=== PATIENT | female | born 1940 | race Caucasian/White ===

== ENCOUNTER 2019-04-22 15:16 | Observation (INO) | payer OTHER ==
[~2019-04-22] VITALS: Ht 157.5 cm; Wt 56.2 kg
[~2019-04-22 15:16] MED LIST: CELEBREX; DEXILANT60 MG PO; HYDROCODONE; K DUR10 MEQ PO; LEVAQUIN750 MG PO; MECLIZINE HCL25 M1 PO; MUCINEX DM ER1 EACH PO; NORCO 10-325 T1 EACH PO; NORVASC PO; NORVASC5 MG PO; PROAIR HFA INH8.5 GM; SIMVASTATIN PO; SIMVASTATIN20 MG PO; SYNTHROID25 MCG PO; TRAZODONE HCL300 MG PO; Z.0.LEVOTHYROXINE75 PO; Z.0.TRAZODONE HCL100 PO; Z.0.VICODIN HP TAB1 PO; Z.1.DIOVAN HCT 1601 PO
--- OUTSIDE RECORDS SUMMARY | 2019-04-22 15:20 | XMS REPORT ---
Author Author [facility] Address Unknown Phone Unavailable Care Team Providers Care Supervisor Fertilizer Name Role Phone Unavailable Unavailable Payers Payer Name Policy Type Policy Number Effective Date Expiration Date Problems This patient has no known problems. Allergies, Adverse Reactions, Alerts Allergy Name Allergy Type Status Severity Reaction(s) Onset Date Inactive Date Treating Clinician Comments Sulfa (Sulfonamide Antibiotics) DA Active SV 2017-10-27 00:00:00 ceftriaxone DA Active SV 2017-10-27 00:00:00 Medications This patient has no known medications.
[2019-04-22 16:43] LABS: BASOPHILS % 0.1 % (0.0-1.0); EOSINOPHILS % 0.1 % (0.0-6.0); HEMATOCRIT 37.8 % (34.2-44.1); HEMOGLOBIN 13.4 g/dL (12.0-16.0); LYMPHOCYTES # (AUTO) 2.7 (1.0-3.2); LYMPHOCYTES % 27.3 % (18.0-39.1); MEAN CORPUSCULAR HEMOGLOBIN 33.8 pg (28-32); MEAN CORPUSCULAR HGB CONC 35.4 g/dL (31-35); MEAN CORPUSCULAR VOLUME 95.2 fL (81-99); MONOCYTES # (AUTO) 0.9 (0.2-0.8); MONOCYTES % 8.9 % (4.4-11.3); NEUTROPHILS # (AUTO) 6.2 (2.1-6.9); PLATELET COUNT 311 x10e3/uL (140-360); RED BLOOD COUNT 3.97 x10e6/uL (3.6-5.1); RED CELL DISTRIBUTION WIDTH 12.1 % (11.7-14.4)
[2019-04-22 16:43] LABS: BILIRUBIN,URINE NEGATIVE (NEGATIVE); CLARITY,URINE SL CLOUDY (CLEAR); COLOR,URINE YELLOW (YELLOW); KETONES,URINE NEGATIVE (NEGATIVE); LEUKOCYTE ESTERASE ,URINE NEGATIVE (NEGATIVE); NITRITE,URINE NEGATIVE (NEGATIVE); PROTEIN,URINE DIPSTICK NEGATIVE (NEGATIVE); URINE UROBILINOGEN 0.2 mg/dL (0.2 - 1)
[2019-04-22 16:53] LABS: INR 0.84
[2019-04-22 16:54] LABS: PARTIAL THROMBOPLASTIN TIME 32.6 seconds (23.8-35.5)
[2019-04-22 16:57] LABS: BACTERIA,URINE RARE /HPF; EPITHELIAL CELLS,URINE RARE /LPF; RBC,URINE 0-5 /HPF (0-5)
[2019-04-22 17:03] LABS: ALANINE AMINOTRANSFERASE 14 IU/L (0-55); ALBUMIN 3.4 g/dL (3.5-5.0); ALBUMIN/GLOBULIN RATIO 1.1 (0.8-2.0); ALKALINE PHOSPHATASE 54 IU/L (40-150); ANION GAP 16.3 mmol/L (8-16); BLOOD UREA NITROGEN 9 mg/dL (7-26); BUN/CREATININE RATIO 11 (6-25); CALCIUM 8.7 mg/dL (8.4-10.2); CARBON DIOXIDE 23 mmol/L (22-29); CHLORIDE 86 mmol/L (98-107); CREATINE KINASE 49 IU/L (29-168); CREATININE, SERUM 0.83 mg/dL (0.57-1.11); EST GLOMERULAR FILTRATION RATE > 60 ML/MIN (60-); GLUCOSE 111 mg/dL (74-118); MAGNESIUM 1.8 MG/DL (1.3-2.1); POTASSIUM 3.3 mmol/L (3.5-5.1); SODIUM 122 mmol/L (136-145)
[2019-04-22 18:30] LABS: BLOOD UREA NITROGEN 8 mg/dL (7-26); GLUCOSE 109 mg/dL (74-118); OSMOLALITY,SERUM 245 mOsm/kg (278-305); SODIUM 122 mmol/L (136-145)
[2019-04-22] MEDS ORDERED: SODIUM CHLORIDE FLUSH 10 ML SYR INJ PRN (18:45)
--- NOTE | 2019-04-22 18:54 | Diagnostic Imaging Report ---
EXAMINATION: Head CT HISTORY: Difficulty walking, UTI, imbalance. COMPARISON: Head CT report from 12/12/2012 TECHNIQUE: Multidetector axial images were obtained without contrast from the foramen magnum to the vertex . The images were reconstructed using brain and bone algorithms. Thin section brain images were reformatted into coronal and sagittal planes. Image quality: Motion/streaking artifact limits the evaluation of the skull base and posterior cranial fossa. Dose modulation, iterative reconstruction, and/or weight based adjustment of the mA/kV was utilized to reduce the radiation dose to as low as reasonably achievable. FINDINGS: Parenchyma: 1. Persistent mild white matter chronic microvascular ischemic changes. Tiny chronic lacunar infarct in the right striatocapsular region. 2. No mass or hemorrhage. No CT evidence of acute territorial vascular insult. Extra-axial spaces:No abnormal density. No extra-axial fluid collections Brain volume: Normal for age. Ventricles: No hydrocephalus or displacement. Arteries: No density suggestive of thrombus. Dural sinuses: No abnormal density. Extra-axial spaces: No abnormal density. Foramen magnum: No mass, Chiari malformation, or basilar invagination. Sella: No obvious mass. Paranasal/mastoid sinuses: Imaged portions unremarkable. Skull/Scalp: No lytic or blastic lesions. No fractures. IMPRESSION: 1. No acute intracranial hemorrhage or cortical infarcts. 2. Mild chronic microvascular ischemic changes. Signed by: Dr. Jagruti Mendez M.D. on 04/22/2019 6:51 PM
--- NOTE | 2019-04-22 20:10 | NUR ---
called to room. pt states that bp elevated and states i need to take my hydralazine." pt states that has medication in bag. pt instructed to not take medication until approved by doctor. nurse informed. back to room to recheck bp. pt states took her own pill despite being instructed to wait. nurse informed.
--- NOTE | 2019-04-22 20:12 | NUR ---
KATHERYN CROCKETT'Marc PER 'S ORDERS
[2019-04-22] MEDS ORDERED: PLAVIX75 MG PO (20:46)
[2019-04-22] MEDS ORDERED: HYDRALAZINE HCL25 MG PO (20:46)
--- NOTE | 2019-04-22 20:56 | NUR ---
informed dr valle in full of patient taking one hydralazine 50mg tab from home medications she brought with her. went over with dr valle all home medications and were reconciled. patient instructed that she is not to take home medications without telling medical staff. patient hostile with this nurse.
[2019-04-22] MEDS ORDERED: SIMVASTATIN 20 MG TAB PO SCH (21:00)
[2019-04-22] MEDS ORDERED: HYDRALAZINE HCL 25 MG TAB PO PRN (21:00)
--- NOTE | 2019-04-22 21:08 | NUR ---
PT ARRIVED ON THE FLOOR AT 2107. PT IS BEING DISRESPECTFUL TO NURSE SHANE. PT CALLED NURSE SHANE AN ASSHOLE AND STATED THAT SHE IS GOING TO GET HIM FIRED. RESPIRATION IS EVEN AND UNLABORED, NO DISTRESS NOTED. PT ORIENTED TO THE ROOM, BED IN THE LOWEST POSITION, LOCKED, BED ALARM ON, AND CALL LIGHT WITHIN REACH. WILL CONTINUE TO MONITOR.
[2019-04-22 21:30] VITALS: BP 168/68
[2019-04-22] MEDS: ONDANSETRON HCL INJ 2MG/ML 2ML 2 MG/ML VIAL IV PRN (21:51)
--- NOTE | 2019-04-22 22:02 | NUR ---
PER DR JOHNSON RENEW PT HOME MEDICATION. WILL CONTINUE TO MONITOR.
[2019-04-22] MEDS ORDERED: VALSARTAN-HCTZ1 EAC1 (22:08)
[2019-04-22] MEDS ORDERED: ONDANSETRON2 MG/1 ML IV (22:08)
[2019-04-22] MEDS ORDERED: ASPIR 8181 MG (22:08)
[2019-04-22] MEDS ORDERED: TRAZODONE HCL 50 MG TAB PO PRN (22:45)
[2019-04-22 23:36] VITALS: BP 167/88
[2019-04-22 23:45] VITALS: BP 167/88
[2019-04-23] VITALS (8 sets, daily range): BP systolic 118–134; BP diastolic 55–63
[2019-04-23] MEDS: HYDROCODONE/APAP 10MG-325MG TAB PO PRN ×6 (00:22→20:55)
[2019-04-23 06:12] LABS: BASOPHILS % 0.1 % (0.0-1.0); EOSINOPHILS % 0.3 % (0.0-6.0); HEMOGLOBIN 12.4 g/dL (12.0-16.0); LYMPHOCYTES # (AUTO) 2.3 (1.0-3.2); LYMPHOCYTES % 33.5 % (18.0-39.1); MEAN CORPUSCULAR HEMOGLOBIN 33.3 pg (28-32); MEAN CORPUSCULAR HGB CONC 35.4 g/dL (31-35); MEAN CORPUSCULAR VOLUME 94.1 fL (81-99); MONOCYTES # (AUTO) 0.6 (0.2-0.8); MONOCYTES % 8.9 % (4.4-11.3); NEUTROPHILS # (AUTO) 3.9 (2.1-6.9); NEUTROPHILS % 56.5 % (38.7-80.0); PLATELET COUNT 293 x10e3/uL (140-360); RED BLOOD COUNT 3.72 x10e6/uL (3.6-5.1); RED CELL DISTRIBUTION WIDTH 12.1 % (11.7-14.4)
[2019-04-23 06:33] LABS: ALANINE AMINOTRANSFERASE 12 IU/L (0-55); ALBUMIN/GLOBULIN RATIO 1.3 (0.8-2.0); ALKALINE PHOSPHATASE 44 IU/L (40-150); BLOOD UREA NITROGEN 6 mg/dL (7-26); BUN/CREATININE RATIO 8 (6-25); CALCIUM 8.6 mg/dL (8.4-10.2); CARBON DIOXIDE 29 mmol/L (22-29); CHLORIDE 86 mmol/L (98-107); CREATININE, SERUM 0.73 mg/dL (0.57-1.11); EST GLOMERULAR FILTRATION RATE > 60 ML/MIN (60-); GLUCOSE 91 mg/dL (74-118); SODIUM 123 mmol/L (136-145)
[2019-04-23] MEDS: ONDANSETRON HCL INJ 2MG/ML 2ML 2 MG/ML VIAL IV PRN (08:51)
[2019-04-23] MEDS ORDERED: POTASSIUM CHLORIDE 10MEQ EA PO SCH (09:00)
[2019-04-23] MEDS: VALSARTAN 160 MG TAB PO SCH ×3 (09:00→09:35)
[2019-04-23] MEDS ORDERED: PANTOPRAZOLE SOD 40 MG TABEC PO SCH (09:00)
[2019-04-23] MEDS ORDERED: ASPIRIN 81 MG CHEW TAB PO SCH (09:00)
[2019-04-23] MEDS ORDERED: LEVOTHYROXINE SODIUM 25 MCG TABLET PO SCH (09:00)
[2019-04-23] MEDS: AMLODIPINE BESYLATE 5 MG TAB PO SCH (09:19)
[2019-04-23] MEDS: CLOPIDOGREL BISULFATE 75 MG TAB PO SCH (09:20)
[2019-04-23] MEDS ORDERED: POTASSIUM CHLORIDE 10MEQ EA PO ONE (09:30)
[2019-04-23] MEDS ORDERED: VALSARTAN 160 MG TAB PO ONE (09:30)
[2019-04-23] MEDS: PANTOPRAZOLE SOD 40 MG TABEC PO SCH (09:41)
[2019-04-23] MEDS: ALBUTEROL/IPRATROPIUM 3 ML NEB NEB PRN (09:46)
--- NOTE | 2019-04-23 12:26 | History and Physical ---
The patient is placed under observation. Observation day is April 22, 2019. CHIEF COMPLAINT: Generalized weakness with low sodium level. HISTORY OF PRESENT ILLNESS: The patient is a pleasant 78-year-old female, who came to the hospital with generalized weakness. The patient's urinalysis otherwise unremarkable. She stated that she has some dysuria on presentation. On lab work, the patient has low sodium level. The patient has a sodium level of 122. There is no previous sodium level to compare. On further evaluation, the patient does take Valsartan/HCTZ. The patient is also taking potassium as well. The patient has no complaint of chest pain or shortness of breath. No abdominal pain. No headache. No visual changes. No vaginal discharge or any bleeding. The patient is otherwise stable. PAST MEDICAL HISTORY: Hypertension, dyslipidemia, history of CVA, TIA, hypothyroidism, urinary incontinent, urinary urgency, and dyslipidemia. 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 PAST SURGICAL HISTORY: Urinary bladder suspension, cholecystectomy, appendectomy, and hysterectomy. SOCIAL HISTORY: The patient does not smoke or use alcohol. No regular drugs. SOCIAL HISTORY: The patient lives at home. ALLERGIES: TO KEFLEX. HOME MEDICATIONS: She is on albuterol HFA inhaler, Norvasc, aspirin, Plavix, Exelon, hydralazine, Aurora, levothyroxine, Zofran, potassium, simvastatin, trazodone, and Valsartan combination with HCTZ. PHYSICAL EXAMINATION: VITAL SIGNS: Temperature is 97, blood pressure 118/55, pulse rate is 85, and respirations 18. GENERAL: The patient is not in acute distress. Awake. HEENT: Normocephalic and atraumatic. Pupils reactive. Anicteric. NECK: Supple grossly. PULMONARY: Clear. CARDIOVASCULAR: Regular rate and rhythm. ABDOMEN: Soft. EXTREMITIES: Multiple bruises of the lower extremity without any edema. No cyanosis. NEUROLOGIC: The patient is awake and alert x3. LABORATORY DATA: Sodium is 123, potassium 3, chloride 86, bicarb 29, BUN 6, creatinine 0.7, and glucose is 91. WBC 6.8, hemoglobin 12.4, hematocrit 35.0, and platelets 293. IMPRESSION: Hyponatremia. The patient may have syndrome of inappropriate antidiuretic hormone secretion versus the combination of Valsartan and HCTZ caused by hydrochlorothiazide combination. The patient is also over drinking water thought that she may have a urinary tract infection. The patient is otherwise stable. Urinalysis is negative. PLAN: Continue with home medications except for Diovan HCT. Watch the patient's blood pressure. Hold off the aspirin and continue with Plavix. The patient will be on observation and should be able to go home within 24 to 48 hours. MD DANETTE Galvan/RAINA /[id number]
[2019-04-23] MEDS: ONDANSETRON HCL 4 MG ORAL DISINTEGRATING TAB PO PRN ×2 (16:13→21:21)
[2019-04-23] MEDS: DOCUSATE SODIUM 100 MG CAP PO SCH (16:40)
--- NOTE | 2019-04-23 19:00 | NUR ---
patient received awake, alert, lying quietly in bed. no c/o pain at this time. pm assessment complete. patient instructed to call for assistance when needed.
--- NOTE | 2019-04-23 20:55 | NUR ---
patient medicated with norco 10/325mg po for c/o generalized pain 11/13.
[2019-04-23] MEDS ORDERED: SIMVASTATIN 40 MG TAB PO SCH (21:00)
--- NOTE | 2019-04-23 21:21 | NUR ---
patient medicated with zofran 4mg po for c/o nausea.
[2019-04-24] VITALS: BP 110/61
--- NOTE | 2019-04-24 | NUR ---
patient oob to bsc with assistance. no c/o pain noted at this time.
[2019-04-24 04:00] VITALS: BP 135/64
[2019-04-24] MEDS ORDERED: LEVOTHYROXINE SODIUM 75 MCG TAB PO SCH (06:00)
[2019-04-24 06:44] LABS: ANION GAP 10.9 mmol/L (8-16); BLOOD UREA NITROGEN 6 mg/dL (7-26); BUN/CREATININE RATIO 8 (6-25); CARBON DIOXIDE 29 mmol/L (22-29); CHLORIDE 92 mmol/L (98-107); CREATININE, SERUM 0.74 mg/dL (0.57-1.11); EST GLOMERULAR FILTRATION RATE > 60 ML/MIN (60-); GLUCOSE 94 mg/dL (74-118); POTASSIUM 3.9 mmol/L (3.5-5.1); SODIUM 128 mmol/L (136-145)
--- NOTE | 2019-04-24 07:14 | NUR ---
PT ASLEEP RESP EVEN AND UNLABORED AT THIS TIME NO DISTRESS NOTED, PT EASILY AROUSED, TO NAME, PT HAS FAMILY MEMBER AT BESIDE, NO C/O PAIN AT THIS TIME WHEN ASKED, CALL LIGHT IN REACH.
[2019-04-24 07:59] VITALS: BP 139/73
[2019-04-24] MEDS: PANTOPRAZOLE SOD 40 MG TABEC PO SCH (08:58)
[2019-04-24] MEDS: CLOPIDOGREL BISULFATE 75 MG TAB PO SCH (08:58)
[2019-04-24] MEDS: HYDROCODONE/APAP 10MG-325MG TAB PO PRN (09:00)
[2019-04-24] MEDS: AMLODIPINE BESYLATE 5 MG TAB PO SCH (09:00)
[2019-04-24] MEDS: VALSARTAN 160 MG TAB PO SCH (09:03)
[2019-04-24] MEDS: DOCUSATE SODIUM 100 MG CAP PO SCH ×2 (09:03→17:00)
[2019-04-24 09:59] VITALS: BP 139/73
--- NOTE | 2019-04-24 10:27 | Discharge Summary ---
PRIMARY CARE PHYSICIAN: Dr. Brian Ramires. FINAL DIAGNOSES: 1. Hyponatremia secondary to combination of the HCTZ and also patient was drinking a lot of water because she thought that she has urinary tract infection, which she does not. 2. Overactive urinary bladder. SUMMARY: The patient is a 78-year-old female who was drinking a lot of water. She came in with low sodium level. Her potassium was also low as well. She was on Diovan HCTZ. She is on K-Dur 10 mEq. Discussed with the patient regarding potassium taking. The patient expressed understanding. We stopped the Diovan HCTZ, put the patient on fluid restriction and her sodium level went from 122 to 128. The patient is doing much better. She does have issues with her bladder problem where she has urgency, but unable to urinate. The patient did see a urologist in the past. Discussed with the patient that she will see a urologist as an outpatient for urodynamic study. I will notify Dr. Brian Ramires for referral. In the meantime, the patient will go home. Continue with other home medication. We will stop the Diovan HCT and place the patient on Diovan 160 mg daily and Lasix 20 mg daily and we will continue her potassium 10 mEq daily. The patient is otherwise stable. She will go home today when her family comes to pick her up. We will arrange for home health. MD DANETTE Galvan/RAINA /[id number]
[2019-04-24 11:32] VITALS: BP 136/81
[2019-04-24] MEDS: ALBUTEROL/IPRATROPIUM 3 ML NEB NEB PRN (11:43)
[2019-04-24 13:10] LABS: OSMOLALITY,SERUM OSMOMETER 251 mOsmol/kg (280-301)
[2019-04-24 15:36] VITALS: BP_SYST 134; BP_SYST 175; BP_DIAS 79
--- NOTE | 2019-04-24 16:17 | NUR ---
ORDER RECEIVED FOR HOME HEALTH FOR SN/PT/OT . MET W THE PT AT THE BEDSIDE. PROVIDED CHOICE. STATES SHE WOULD LIKE A HH AGENCY IN NETWORK W [facility] +. PT CHOSE [facility] @ OFF: [phone] / FAX: [phone]. CHOICE LETTER WAS SIGNED AND COPY TO PT AND COPY TO CHART. REFERRAL WAS FAXED TO [facility].
--- NOTE | 2019-04-24 16:23 | NUR ---
HOME HEALTH DISCHARGE NOTE PATIENT ADDRESS WHERE SERVICE WILL BE RECEIVED: [id number] [place] [address] PATIENT CONTACT NUMBER: [phone] NAME OF HOME HEALTH COMPANY: [facility] TELEPHONE/FAX NUMBER OF COMPANY: OFF: [phone] / FAX: [phone] ADDRESS OF COMPANY: [address] [place], [place] [address] [place] [address] SERVICES TO RECEIVE: SKILLED NURSE TO EVALUATE AND TREAT, PHYSICAL AND OCCUPATIONAL THERAPY TO EVALUATE AND TREAT ANTICIPATED DATE SERVICES WILL BEGIN: 04/25/2019 Please call the company above if you have not received a call to schedule a home visit within 24 hours of discharge. Addendum: 04/24/19 at 1627 by Elif Bullock CM RECEIVED A CALL FROM [facility]. STATES THEY WILL SEE PT ON 04/26/2019
== END 2019-04-24 16:49 | disposition home health service (06) ==
LOC: ER 15:16 → ERHOLD 19:04 → INTOOBSV 19:04 → MED/SURG3 21:22
PROVIDERS: ADMIT Internal Medicine; ATTEND Internal Medicine
DX: E87.1 Hypo-osmolality and hyponatremia (principal); E87.6 Hypokalemia; T50.2X5A Adverse effect of carbonic-anhydrase inhibitors, benzothiadiazides and other diuretics, initial encounter; T46.5X5A Adverse effect of other antihypertensive drugs, initial encounter; Z87.440 Personal history of urinary (tract) infections; I10 Essential (primary) hypertension; Z86.73 Personal history of transient ischemic attack (TIA), and cerebral infarction without residual deficits; E03.9 Hypothyroidism, unspecified; Z82.49 Family history of ischemic heart disease and other diseases of the circulatory system; N32.81 Overactive bladder
CPT/HCPCS: 36415 ×3; 51700; 70450; 80048; 80053 ×2; 81001; 82550; 82553; 82607; 82947; 83735; 83930; 83935; 84295; 84300; 84443; 84484; 84520; 85025 ×2; 85610; 85730; 87086; 94640; 97116; 97139; 97162; 99284; G0378 ×3; J2405 ×2; Q0162; S0164 ×2